=== PATIENT | male | born 1960 | race Caucasian/White ===

== ENCOUNTER 2018-11-17 09:05 | Day surgery (SDC) | payer OTHER ==
[~2018-11-17] VITALS: Ht 165.1 cm; Wt 71.5 kg
[2018-11-17 10:14] VITALS: Ht 165.1 cm; Wt 71.5 kg
[2018-11-17 10:25] VITALS: BP 136/79; PULSE 52; RESP 15
[2018-11-17] MEDS ORDERED: MIDAZOLAM 1 MG/ML 2 ML INJ ONE ×2 (11:25)
[2018-11-17] MEDS ORDERED: FENTAnyl 50 MCG/ML VIAL ONE (11:25)
[2018-11-17 11:59] VITALS: BP 134/80; RESP 20
== END 2018-11-17 15:59 | disposition home or self-care (01) ==
LOC: GIL 09:05
PROVIDERS: ATTEND Internal Medicine Gastroenterology
DX: Z12.11 Encounter for screening for malignant neoplasm of colon (principal); D12.5 Benign neoplasm of sigmoid colon; D12.3 Benign neoplasm of transverse colon; K63.5 Polyp of colon; K29.30 Chronic superficial gastritis without bleeding; K21.9 Gastro-esophageal reflux disease without esophagitis; K44.9 Diaphragmatic hernia without obstruction or gangrene; K64.8 Other hemorrhoids
CPT/HCPCS: 43239; 45380; 45385; J2250; J3010; Z7610; 88305; 88312